=== PATIENT | male | born 1985 | race African-American/Black ===

== ENCOUNTER 2017-09-01 09:06 | Emergency (ER) | payer BC ==
[~2017-09-01] VITALS: Ht 185.4 cm; Wt 109.0 kg
[2017-09-01] MEDS ORDERED: IBUPROFEN 600MG TABLET PO ONE (11:15)
[2017-09-01 11:20] VITALS: BP 136/82
== END 2017-09-01 11:22 | disposition home or self-care (01) ==
LOC: ER 09:23
DX: L03.213 Periorbital cellulitis (principal)
CPT/HCPCS: 99283